=== PATIENT | male | born 1995 | race Caucasian/White ===

== ENCOUNTER → 2018-12-01 | Outpatient (CLI) | payer BC ==
--- NOTE | 2018-12-01 14:56 | Diagnostic Imaging Report ---
Renal ultrasound, 12/01/2018. History: Urinary urgency, incontinence. Discussion: Transverse and longitudinal images of the kidneys were obtained demonstrating normal renal sizes and echogenicities. An oval anechoic structure is present in the inferior aspect of the right kidney measuring 2.0 x 1.8 x 1.6 cm. There is no evidence of hydronephrosis, mass, or renal calculus. The right kidney measures 11.4 cm and the left kidney measures 11.5 cm in length. The urinary bladder is unremarkable. Bladder volume is 112 mL. Bilateral ureteral jets were identified. Prostate measures 17.8 mL in volume. There is no evidence of free fluid. IMPRESSION: Small right renal cyst. Otherwise unremarkable renal ultrasound. Signed by: Arturo Schmidt on 12/01/2018 2:53 PM
== END ==
LOC: US 13:30
PROVIDERS: ATTEND Urology
DX: N39.46 Mixed incontinence (principal)
CPT/HCPCS: 76770